=== PATIENT | female | born 1960 | race African-American/Black ===

== ENCOUNTER 2018-08-07 08:53 | Emergency (ER) | payer MEDICAID ==
[~2018-08-07] VITALS: Ht 154.9 cm; Wt 62.6 kg
[~2018-08-07 08:53] MED LIST: ALBUTEROL SULF8.5 GM INH; BACTRIM DS TAB1 EAC1 ORAL; CHERATUSSIN AC118 ML PO; NORCO 5-325 TA1 EACH ORAL; ONDANSETRON ODT4 MG ORAL; PREDNISONE20 MG ORAL; ZITHROMAX250 MG ORAL
[2018-08-07] MEDS ORDERED: QUINAPRIL HCL20 MG PO (09:03)
[2018-08-07] MEDS ORDERED: VITAMIN D400 INTLU ORAL (09:03)
[2018-08-07] MEDS ORDERED: ASPIRIN81 MG ORAL (09:03)
[2018-08-07] MEDS ORDERED: FISH OIL 1,0001 EAC1 ORAL (09:03)
[2018-08-07] MEDS ORDERED: VITAMIN C500 M1 ORAL (09:03)
[2018-08-07] MEDS ORDERED: AMLODIPINE BESY10 MG ORAL (09:03)
[2018-08-07] MEDS ORDERED: FOLIC ACID1 MG ORAL (09:03)
[2018-08-07 09:07] VITALS: BP 153/79
--- NOTE | 2018-08-07 09:54 | Emergency Room Report ---
History of Present Illness General Chief Complaint: Headache Source: Patient Present Illness HPI The patient states she has had an intermittent headache for the past few days. She states the headache is frontal and comes and goes. She denies nausea or vomiting. She denies blurry vision. She denies recent trauma. She denies fever or chills. She denies neck pain. She denies recent illness. She denies sore throat. She states that previously when she has had similar headaches, she has had sinusitis. She states she is also had decreased hearing in her right ear. She states she did use a Q-tip and try to remove cerumen. She states her symptoms continue in the right ear. She also has pain in that ear. She has no other complaints. Allergies: Coded Allergies: PENICILLIN (Unverified Allergy, Unknown, 10/08/14) Patient History Past Medical History: see triage record, HTN, other - Heart murmur Social History: Denies: smoking, alcohol use, drug use Reviewed Nursing Documentation: PMH: Agreed; PSxH: Agreed Nursing Documentation-PMH Past Medical History: No Stated History Hx Cardiac Problems: Yes - congential heart murmur Hx Hypertension: Yes Hx Pacemaker: No Hx Asthma: No Hx COPD: No Hx Diabetes: No Hx Cancer: No Hx Gastrointestinal Problems: No Hx Dialysis: No History Of Psychiatric Problem: No Hx Neurological Problems: No Hx Cerebrovascular Accident: No Hx Seizures: No Review of Systems All Other Systems: negative except mentioned in HPI Physical Exam Vital Signs Date Time Temp Pulse Resp B/P (MAP) Pulse Ox O2 Delivery O2 Flow Rate FiO2 08/07/18 08:57 98.2 66 18 153/79 (103) 94 Room Air Sp02 EP Interpretation: reviewed, normal General Appearance: no apparent distress, alert, GCS 15, non-toxic Head: normocephalic, atraumatic Eyes: bilateral eye normal inspection, bilateral eye PERRL ENT: hearing grossly normal, normal pharynx, no angioedema, normal voice, other - R. External canal with swelling, erythema, exudate, macerated skin oozing a small amount of blood. Neck: full range of motion, supple/symm/no masses Respiratory: no respiratory distress, no retraction, no accessory muscle use, speaking full sentences Rectal: deferred Musculoskeletal: back normal, gait/station normal, normal range of motion, non- tender Neurologic: alert, oriented x3, responsive, motor strength/tone normal, sensory intact, speech normal Psychiatric: judgement/insight normal, memory normal, mood/affect normal, no suicidal/homicidal ideation Reflexes: 3+ bicep (R), 3+ bicep (L), 3+ tricep (R), 3+ tricep (L), 3+ knee (R) , 3+ knee (L) Skin: normal color, no rash, warm/dry, well hydrated Medical Decision Making Diagnostic Impression: Primary Impression: Otitis externa Additional Impressions: Headache Sinusitis ER Course This patient has obvious otitis externa on physical exam. Patient had also complained of headache. She states she has a history of sinusitis. Therefore, I did obtain a CT sinus. This did show minimal evidence of some sinusitis and mucosal thickening. As a precaution, I will also place the patient on a short course of oral antibiotics. Overall, the patient is well-appearing and nontoxic. Likely the patient's symptoms are primarily related to the otitis externa. The patient is given close return precautions and follow-up instructions. CT/MRI/US Diagnostic Results CT/MRI/US Diagnostic Results : Imaging Test Ordered: CT sinuses: Impression Impression: Minimal sinus disease, with mucosal disease involving the sphenoid and right anterior ethmoid sinuses. See official report in the electronic medical record. Last Vital Signs Date Time Temp Pulse Resp B/P (MAP) Pulse Ox O2 Delivery O2 Flow Rate FiO2 08/07/18 09:07 98.2 66 18 153/79 94 Room Air Status: improved Disposition: HOME, SELF-CARE Condition: Improved Referrals: NON PHYSICIAN (PCP) Carole Guadarrama DO Aug 07, 2018 09:54
--- NOTE | 2018-08-07 10:52 | Diagnostic Imaging Report ---
Indications: Intermittent headache for the past few days, frontal in nature Technique: Spiral images obtained through the facial bones. No IV contrast utilized. Multiplanar reconstructions were generated.Total dose length product 560 mGycm. CTDIvol(s) 28 mGy. Dose reduction achieved using automated exposure control Comparison: none Findings: There is some mucosal disease within the sphenoid sinus. There is minimal right anterior ethmoid sinus opacification. The frontal sinuses are clear. There is some mucosal thickening of the posterior nasal fossa. The maxillary sinuses are clear. No air-fluid levels are demonstrated. There is evidence of multiple prior tooth extractions, and the maxilla is completely edentulous.. No acute fractures. The orbits and optic globes are unremarkable. The included intracranial structures demonstrate an area of encephalomalacia in the left parietal lobe which is also evident on a CT scan of 2012. The upper aerodigestive tract is unremarkable. No facial mass or adenopathy. Impression: Minimal sinus disease, with mucosal disease involving the sphenoid and right anterior ethmoid sinuses. 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
[2018-08-07] MEDS ORDERED: ZITHROMAX250 MG ORAL (11:18)
[2018-08-07] MEDS ORDERED: CIPRODEX OTIC7.5 M1 RIGHT EAR (11:18)
[2018-08-07 11:24] VITALS: BP 137/70
== END 2018-08-07 11:26 | disposition home or self-care (01) ==
LOC: EMR 09:25
DX: H60.91 Unspecified otitis externa, right ear (principal); R51 Headache; J32.9 Chronic sinusitis, unspecified; I10 Essential (primary) hypertension; Z88.0 Allergy status to penicillin
CPT/HCPCS: 70486; 99284